=== PATIENT | male | born 2000 | race Caucasian/White ===

== ENCOUNTER 2020-04-22 20:35 | Emergency (ER) | payer OTHER ==
[~2020-04-22] VITALS: Ht 190.5 cm; Wt 136.1 kg
[2020-04-22 20:45] VITALS: BP 155/92
--- NOTE | 2020-04-22 21:16 | NUR ---
ERMD EVALUATING PATIENT IN TENT.
[2020-04-22] MEDS ORDERED: DEXAMETHASONE 4 MG/ML VIAL PO ONE (21:25)
--- NOTE | 2020-04-22 21:40 | NUR ---
Novel Covid swab collected and handed to Prash[employer].
[2020-04-22 22:00] VITALS: BP 155/92
--- NOTE | 2020-04-22 22:00 | NUR ---
Patient discharged with v/s stable. Written and verbal after care instructions given and explained. Patient alert, oriented and verbalized understanding of instructions. Ambulatory with steady gait. All questions addressed prior to discharge. ID band removed. Patient advised to follow up with PMD. Rx of Augmentin, Capacol Sore throat, tessalon perles , albuterol given. Patient educated on indication of medication including possible reaction and side effects. Opportunity to ask questions provided and answered.
== END 2020-04-22 22:00 | disposition home or self-care (01) ==
LOC: MED 20:35
DX: B34.9 Viral infection, unspecified (principal); Z20.828 Contact with and (suspected) exposure to other viral communicable diseases; J03.90 Acute tonsillitis, unspecified
CPT/HCPCS: 99283; J1100; U0003

== ENCOUNTER 2020-04-30 16:22 | Emergency (ER) | payer OTHER ==
[~2020-04-30] VITALS: Ht 193 cm; Wt 141.5 kg
[2020-04-30 16:52] VITALS: BP 147/80
[2020-04-30] MEDS ORDERED: cefTRIAXone 250 MG in LIDOCAINE MPF 1% 0.9 ML IM ONE (17:00)
[2020-04-30] MEDS ORDERED: AZITHROMYCIN 250 MG TAB PO ONE (17:00)
[2020-04-30] MEDS ORDERED: LIDOCAINE MPF 1% 5 ML ONE (17:11)
[2020-04-30] MEDS ORDERED: cefTRIAXone 250 MG VIAL ONE (17:11)
--- NOTE | 2020-04-30 17:24 | NUR ---
19 Y/O M PRESENTS TO ED C/O PENILE DISCHARGE AND DRY SKIN OVER PENIS X 4 DAYS. PT STATES THAT HE STARTED EXPERIENCING WHITISH PENILE DISCHARGE AND SKIN OVER THE PENIS HAS BEEN DRY AND HAS GOTTEN WORST. DENIES PAINFUL URINATION. PER PT, ONLY HAS PAIN WHEN PENIS IS IN CONTACT WITH STUFF. MHX: ASTHMA NKA
--- NOTE | 2020-04-30 17:40 | NUR ---
Patient discharged with v/s stable. Written and verbal after care instructions given and explained. Patient alert, oriented and verbalized understanding of instructions. Ambulatory with steady gait. All questions addressed prior to discharge. ID band removed. Patient advised to follow up with PMD. Rx of CLOMITRAZOLE, MUPIROCIN given. Patient educated on indication of medication including possible reaction and side effects. Opportunity to ask questions provided and answered.
== END 2020-04-30 17:40 | disposition home or self-care (01) ==
LOC: MED 16:22
DX: N47.6 Balanoposthitis (principal)
CPT/HCPCS: 36415; 81002; 96372; 99283; J0696; J2001